=== PATIENT | male | born 1965 | race Caucasian/White ===

== ENCOUNTER → 2019-05-12 | Outpatient (REF) | LOC: M LAB LCGH 14:03 | PROVIDERS: ATTEND Physician Assistant | DX: L57.0 Actinic keratosis (principal) ==

== ENCOUNTER → 2020-10-01 | Outpatient (REF) | payer BC | LOC: M LAB REF 17:26 | PROVIDERS: ATTEND Physician Assistant | DX: C44.320 Squamous cell carcinoma of skin of unspecified parts of face (principal) ==